=== PATIENT | female | born 2000 | race Caucasian/White ===

== ENCOUNTER 2021-03-01 22:28 | Emergency (ER) | payer OTHER, SELFPAY ==
--- NOTE | ~2021-03-01 | CT_ITS ---
EXAMINATION: CT cervical spine wo con DATE: 03/01/2021 23:36 INDICATION: Neck pain TECHNIQUE: Computed tomography (CT) of the cervical spine was performed without intravenous contrast. The dose-length product (DLP) was 639.84 mGy-cm. Automated exposure control and iterative reconstruc tion technique were employed. COMPARISON: None FINDINGS: There is reversal of the normal cervical lordosis. The odontoid is intact. Vertebral body a lignment is maintained. The intervertebral disc space heights are normal. There is no fracture. The p revertebral soft tissues are normal. IMPRESSION: 1. No cervical spine fracture. Reviewed, dictated and finalized at location A.
--- NOTE | ~2021-03-01 | XR_ITS ---
EXAMINATION: XR lumbar spine 2-3V DATE: 03/01/2021 23:42 INDICATION: Low back pain TECHNIQUE: Anteroposterior and lateral views of the lumbar spine, and cone-down lateral view of the l umbosacral junction were obtained. COMPARISON: 11/30/2013 FINDINGS: There is no fracture, dislocation, or subluxation. The vertebral body heights, alignment, a nd intervertebral disc spaces are normal. The bowel gas pattern is normal. IMPRESSION: 1. No acute osseous abnormality. Reviewed, dictated and finalized at location A.
[2021-03-01 22:30] VITALS: BP 148/99; PULSE 110; RESP 18; TEMP 36.8; O2SAT 100
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
[2021-03-02] MEDS: CYCLOBENZAPRINE HCL 10 MG TABLET PO (00:24)
== END 2021-03-02 00:26 | disposition home or self-care (01) ==
PROVIDERS: Emergency Provider Nurse Practitioner; PCP Pediatrics
DX: S13.4XXA Sprain of ligaments of cervical spine, initial encounter (principal); S39.012A Strain of muscle, fascia and tendon of lower back, initial encounter; V43.52XA Car driver injured in collision with other type car in traffic accident, initial encounter
CPT/HCPCS: 72100; 72125; 99284; A9270

== ENCOUNTER 2021-03-10 12:52 | Outpatient (RCR) | payer OTHER, SELFPAY ==
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
== END 2021-04-11 15:00 | disposition home or self-care (01) ==
LOC: CHSPT 12:52
PROVIDERS: PCP Pediatrics; Visit Provider Pediatrics
DX: S39.012A Strain of muscle, fascia and tendon of lower back, initial encounter (principal)
CPT/HCPCS: 97014; 97110; 97161; G0283

== ENCOUNTER → 2021-12-16 08:06 | Outpatient (CLI) | payer OTHER, SELFPAY ==
--- NOTE | ~2021-12-16 | US_ITS ---
EXAMINATION: US abdomen complete EXAM DATE: 12/16/2021 08:41 INDICATION: RUQ pain TECHNIQUE: Multiple grayscale and Doppler images of the complete abdomen were obtained (by a technolo gist who performed the scan) and subsequently reviewed. There is no prior study for comparison. FINDINGS: The abdominal aorta is normal in caliber. Visualized portion IVC is patent. The pancreatic head a nd body are normal in appearance. The pancreatic tail is not visualized. The liver has normal echogenicity and contour. There are no focal liver lesions identified. There is no evidence of intrahepatic biliary duct dilation. Portal venous flow was seen in the hepatopedal , normal direction and has normal Doppler waveform. Common bile duct measures 4 mm, which is normal. The gallbladder wall is normal in thickness, with ex pected amount of distention. No sonographic evidence of pericholecystic fluid. There is no cholelit hiases. Technologist performing exam reports patient did not demonstrate sonographic Barron's sign. Please note that this sign is less reliable in patients who have received pain medication. Right kidney: There is normal contour and echogenicity. It measures 11.4 x 5.0 x 5.5 centimeters. There are no focal renal lesions identified. There is no hydronephrosis. Left kidney: There is normal contour and echogenicity. It measures 12.0 x 5.3 x 5.3 centimeters. T here are no focal renal lesions identified. There is no hydronephrosis. The spleen measures 14.3 centimeters, mildly enlarged but otherwise morphologically normal. IMPRESSION: Mild splenomegaly. Reviewed, dictated and finalized at location B. ORER IMPRESSION: Mild splenomegaly.
--- NOTE | ~2021-12-16 | US_ITS ---
EXAMINATION: US pelvic complete DATE: 12/16/2021 10:07 INDICATION: Right upper quadrant pain Comparison:No prior studies for comparison. TECHNIQUE: Multiple transabdominal sonographic images of the pelvis performed. FINDINGS: The uterus measures 8.3 x 3.6 x 4.7 cm. The endometrial complex measures 5 mm. The right ovary measures 3.3 x 2.1 x 3.9 cm and the left ovary measures 2.5 x 1.7 x 2.4 cm. There ar e small follicles in each ovary. Normal doppler signal in both ovaries. There is no free fluid in the pelvis. There are no abnormal masses seen on either side. IMPRESSION: 1. Unremarkable pelvic ultrasound. Reviewed, dictated and finalized at location A. H HAND
== END ==
DX: R10.11 Right upper quadrant pain (principal); R16.1 Splenomegaly, not elsewhere classified
CPT/HCPCS: 76700; 76856

== ENCOUNTER 2024-05-29 08:05 | Outpatient (CLI) | payer OTHER, SELFPAY ==
--- NOTE | ~2024-05-29 | MR_ITS ---
EXAMINATION: MR cervical spine wo con DATE: 05/29/2024 08:41 INDICATION: Anesthesia of skin. Neck and shoulder and arm pain. TECHNIQUE: Magnetic resonance imaging (MRI) of the cervical spine was performed without intravenous c ontrast. COMPARISON: CT cervical spine 03/01/2021 FINDINGS: There is kyphosis of cervical spine. Vertebral body heights and intervertebral disc heights are normal. The spinal cord signal intensity is normal. The following disc levels are specifically d iscussed: C2-C3 through C6-C7: The disc does not extend beyond the endplate margin. There is no uncovertebral j oint osteoarthritis. There is no facet joint osteoarthritis. There is no neural foraminal stenosis. T here is no central canal stenosis. C7-T1: The disc does not extend beyond the endplate margin. There is no uncovertebral joint osteoarth ritis. There is mild bilateral facet joint osteoarthritis. There is no neural foraminal stenosis. The re is no central canal stenosis. IMPRESSION: 1. 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 Reviewed, dictated and finalized at location A.
== END 2024-05-29 08:06 | disposition home or self-care (01) ==
PROVIDERS: PCP Family Medicine; Visit Provider Physician Assistant Medical
DX: R20.0 Anesthesia of skin (principal); R20.2 Paresthesia of skin; M54.12 Radiculopathy, cervical region; R29.898 Other symptoms and signs involving the musculoskeletal system
CPT/HCPCS: 72141

== ENCOUNTER 2024-10-15 18:02 | Emergency (ER) | payer OTHER, SELFPAY ==
--- NOTE | ~2024-10-15 | CT_ITS ---
EXAMINATION: CT abdomen pelvis w con DATE: 10/15/2024 19:59 INDICATION: RUQ pain TECHNIQUE: Computed tomography (CT) of the abdomen and pelvis was performed with 100 mL Omnipaque-350 intravenous contrast. Automated exposure control and iterative reconstruction technique were employe d. The dose-length product was 1415.70 mGy-cm. COMPARISON: Ultrasounds of the abdomen and pelvis 12/16/2021. FINDINGS: Lower thorax: Unremarkable Liver: Enlarged. Biliary/Gallbladder: Gallbladder is normal. No bile duct dilation. Pancreas: No mass or duct dilation. Spleen: Enlarged. Adrenals:No mass. Kidneys: No suspicious mass, obstructing stone, or hydronephrosis. GI tract: No small or large bowel dilation. Normal appendix. Mesentery/Peritoneum: No ascites, mass, or free air. Retroperitoneum: No mass. Pelvis: Pelvic organs are within normal limits. IUD, in good position. Soft Tissues: Soft tissues and body wall unremarkable. Bones: No acute osseous finding. IMPRESSION: Hepatosplenomegaly. Otherwise normal CT abdomen and pelvis findings Reviewed, dictated and finalized at location K. 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
[2024-10-15 18:13] VITALS: BP 146/92; PULSE 114; RESP 18; TEMP 36.4; O2SAT 100
--- NOTE | 2024-10-15 18:16 | ED_ITS ---
HPI - Abdominal Pain General Chief Complaint: Abdominal Pain <EMERY Seth Last Filed: 10/15/24 18:20> Stated Complaint: RUQ pain <EMERY Seth Last Filed: 10/15/24 18:20> Time Seen by Provider: 10/15/24 18:14 <EMERY Seth Last Filed: 10/15/24 18:20> Focused HPI: Patient is a 24 y/o female who presents to the ED with c/o RUQ abd pain. Patient reports pain has been intermittent for the past few months, progressively worsening. Became worse and more constant today with radiation to her R shoulder blade. Has been nauseous today, unable to keep down any pain medication. Has been taking pepcid and prilosec for acid reflux sx's over past few months as well. Also reports having diarrhea today. Denies fevers. GENERAL: Uncomfortable-appearing, well-nourished, and in no acute distress. HEAD: Normocephalic, atraumatic. CHEST: Clear to auscultation. ?No respiratory distress. HEART: Tachycardic with regular rhythm.? ABD: Moderate tenderness in RUQ/epigastric region, no rebound. Normoactive BS NEURO: ?Alert and oriented x3. Patient screened in triage and initial orders placed.? ?Additional care and disposition to be based upon?diagnostic testing and treatment. <Chaya Cristobal PA-C - Last Filed: 10/15/24 18:20> Source: patient <EMERY Seth Last Filed: 10/15/24 18:20> Mode of arrival: ambulatory <EMERY Seth Last Filed: 10/15/24 18:20> Limitations: no limitations <EMERY Seth Last Filed: 10/15/24 18:20> History of Present Illness HPI narrative: Agree with HPI . Chronic discomfort for last month. Worsening over last week and associated with yellow diarrhea <Dc Tovar MD - Last Filed: 10/16/24 18:15> Related Data Allergies/Adverse Reactions: Allergies Allergy/AdvReac Type Severity Reaction Status Date / Time azithromycin (From Zithromax AdvReac Intermediate facial Verified 10/13/24 12:16 Z-Harish) flushing <Chaya Cristobal PA-C - Last Filed: 10/15/24 18:20> Review of Systems 2 Review of Systems: All systems reviewed & are unremarkable except as noted in HPI and below <Dc Tovar MD - Last Filed: 10/16/24 18:15> Constitutional: Constitutional: Reports no additional constitutional complaints <Dc Tovar MD - Last Filed: 10/16/24 18:15> ENT: Reports system reviewed and no additional complaints, except as documented <Dc Tovar MD - Last Filed: 10/16/24 18:15> Cardiovascular: Cardiovascular: Reports no additional cardiovascular complaints <Dc Tovar MD - Last Filed: 10/16/24 18:15> Respiratory: Respiratory: Reports no additional respiratory complaints < Dc Tovar MD - Last Filed: 10/16/24 18:15> Gastrointestinal: Gastrointestinal: Reports abdominal pain, Reports diarrhea and Reports nausea <Dc Tovar MD - Last Filed: 10/16/24 18:15> Genitourinary: Genitourinary: Reports no additional female genitourinary complaints <Dc Tovar MD - Last Filed: 10/16/24 18:15> PMFSH Past Medical History Medical History: Medical History No significant past medical history History of deviated nasal septum BMI greater than 40 <Chaya Cristobal PA-C - Last Filed: 10/15/24 18:20> Surgical History Surgical History: Surgical History No significant past surgical history History of oral surgery History of throat surgery History of tonsillectomy and adenoidectomy <Chaya Cristobal PA-C - Last Filed: 10/15/24 18:20> Family History Family History: Family History Other Acute myocardial infarction Breast cancer Depression Diabetes mellitus Heart disease Hypertension No significant family history <Chaya Cristobal PA-C - Last Filed: 10/15/24 18:20> Social History Social History: Social History Smoking status: Never smoker Alcohol intake: never Substance use: never Lack of Transportation: No Lack of Food: Never True Current Housing: I Have Housing Concerned About Future Housing: No Difficulty Paying Gas/Electric Bills: No Difficulty Paying for Meds: No Currently Unemployed: No Education: Bachelor's Degree Difficulty w/ Childcare or Family Care: No Living arrangements: with family Occupation/Education: student <Chaya Cristobal PA-C - Last Filed: 10/15/24 18:20> Exam 2 Narrative: GENERAL: Fatigued-appearing, well-nourished, and in no acute distress. HEAD: Normocephalic, atraumatic. ENT: Mucous membranes moist. CHEST: Clear to auscultation. No respiratory distress. HEART: tachycardic and regular. Normal peripheral pulses. ABDOMEN: Soft, mild epigastric discomfort, nondistended. EXTREMITIES: Normal range of motion. No edema. SKIN: Warm, dry, no rash. NEURO: Alert and oriented x3. PSYCH: Normal mood and affect. <Dc Tovar MD - Last Filed: 10/16/24 18:15> Course Course Emergency Course: CT with hepatosplenomegaly which is nonspecific. Informed patient of results. White count mildly elevated which likely relates to vomiting. Nonspecific LFT elevation is noncritical nodes likely related to viral syndrome. Recommend follow-up with PCP. <Dc Tovar MD - Last Filed: 10/16/24 18:15> Vital Signs Vital signs: Vital Signs Temperature 97.6 F 10/15/24 18:13 Pulse Rate 114 H 10/15/24 18:13 Respiratory Rate 18 10/15/24 18:13 Blood Pressure 146/92 H 10/15/24 18:13 Pulse Oximetry 100 10/15/24 18:13 Oxygen Delivery Room Air 10/15/24 18:13 Temperature 97.6 F 10/15/24 18:13 Pulse Rate 105 H 10/15/24 18:51 Respiratory Rate 18 10/15/24 18:51 Blood Pressure 130/92 H 10/15/24 18:51 Pulse Oximetry 98 10/15/24 18:51 Oxygen Delivery Room Air 10/15/24 18:13 <Chaya Cristobal PA-C - Last Filed: 10/15/24 18:20> Vital Signs Temperature 97.6 F 10/15/24 18:13 Pulse Rate 114 H 10/15/24 18:13 Respiratory Rate 18 10/15/24 18:13 Blood Pressure 146/92 H 10/15/24 18:13 Pulse Oximetry 100 10/15/24 18:13 Oxygen Delivery Room Air 10/15/24 18:13 Temperature 97.6 F 10/15/24 18:13 Pulse Rate 105 H 10/15/24 18:51 Respiratory Rate 18 10/15/24 18:51 Blood Pressure 130/92 H 10/15/24 18:51 Pulse Oximetry 98 10/15/24 18:51 Oxygen Delivery Room Air 10/15/24 18:13 <Dc Tovar MD - Last Filed: 10/16/24 18:15> MDM - Abdominal Pain MDM Narrative Medical decision making narrative: MSE by LUKAS in triage. <Chaya Cristobal PA-C - Last Filed: 10/15/24 18:20> Lab Data Result diagrams: 10/15/24 18:46 10/15/24 18:46 <EMERY Seth Last Filed: 10/15/24 18:20> Labs: Lab Results 10/15/24 10/15/24 10/15/24 Range/Units 18:46 19:38 19:41 WBC 14.1 H (4.5-10.0) K/mm3 RBC 5.36 (4.2-5.4) M/mm3 Hgb 15.7 H (12.0-15.0) g/dL Hct 46.3 (37.0-47.0) % MCV 86.4 (80-100) fl MCH 29.3 (26-34) pg MCHC 33.9 (32-36) g/dl RDW 12.3 (11.5-14.5) % Plt Count 280 (150-375) k/mm3 MPV 10.3 (7.4-10.4) fl Immature Gran % (Auto) Not Reportable Neut % (Auto) Not Reportable Lymph % (Auto) Not Reportable Island % (Auto) Not Reportable Eos % (Auto) Not Reportable Baso % (Auto) Not Reportable Lymph # (Auto) Not Reportable [place] # (Auto) Not Reportable Eos # (Auto) Not Reportable Baso # (Auto) Not Reportable Abs Immat Gran (auto) Not Reportable Absolute Neuts (auto) Not Reportable Absolute Nucleated RBC Not Reportable Total Counted 100 Neutrophils % (Manual) 79 H (46-73) % Band Neutrophils % 2 (0-6) % Lymphocytes % (Manual) 8.0 L (18-44) % Monocytes % (Manual) 10 H (3-9) % Eosinophils % (Manual) 1 (0-4) % Nucleated RBC % Not Reportable Abs Neuts (Manual) 11.42 H (1.7-7.2) K/mm3 Abs Lymphs (Manual) 1.12 (1.1-4.5) K/mm3 Abs Monocytes (Manual) 1.41 H (0.1-0.90) K/mm3 Absolute Eos (Manual) 0.14 (0.02-0.50) K/mm3 Platelet Estimate Adequate (Adequate) Schistocytes None seen Sodium 142 (137-145) mmol/L Potassium 3.7 (3.4-5.0) mmol/L Chloride 110 H (98-107) mmol/L Carbon Dioxide 26 (22-30) mmol/L Anion Gap 6 (4-12) mmol/L BUN 9 (7-17) mg/dL Creatinine 0.60 L (0.7-1.0) mg/dL Estim Creat Clear Calc 157 ml/min Estimated GFR > 60 (59 - ) Glucose 97 (65-110) mg/dL Calcium 9.6 (8.4-10.2) mg/dL Total Bilirubin 1.0 (0.2-1.3) mg/dL AST 43 H (14-36) U/L ALT 63 H (6-35) U/L Alkaline Phosphatase 81 (38-126) U/L Total Protein 8.0 (6.3-8.2) g/dL Albumin 4.8 (3.5-5.1) g/dL Lipase 99 (23-300) U/L Urine Color Yellow (Yellow) Urine Appearance Clear (Clear) Urine pH 6.0 (5.0-9.0) Ur Specific [place] 1.011 (1.001-1.035) Urine Protein Negative (Negative) mg/dL Urine Glucose (UA) Negative (Negative) mg/dL Urine Ketones Negative (Negative) mg/dL Ur Blood (Man) Negative (Negative) Urine Nitrate Negative (Negative) Urine Bilirubin Negative (Negative) Urine Urobilinogen 0.2 (<2.0) mg/dL Leukocyte Esterase Rfl Negative (Negative) ISIS/UL POC Urine HCG, Qual Negative (Negative) Monoscreen (Negative) 10/15/24 Range/Units 20:52 WBC (4.5-10.0) K/mm3 RBC (4.2-5.4) M/mm3 Hgb (12.0-15.0) g/dL Hct (37.0-47.0) % MCV (80-100) fl MCH (26-34) pg MCHC (32-36) g/dl RDW (11.5-14.5) % Plt Count (150-375) k/mm3 MPV (7.4-10.4) fl Immature Gran % (Auto) Neut % (Auto) Lymph % (Auto) Island % (Auto) Eos % (Auto) Baso % (Auto) Lymph # (Auto) [place] # (Auto) Eos # (Auto) Baso # (Auto) Abs Immat Gran (auto) Absolute Neuts (auto) Absolute Nucleated RBC Total Counted Neutrophils % (Manual) (46-73) % Band Neutrophils % (0-6) % Lymphocytes % (Manual) (18-44) % Monocytes % (Manual) (3-9) % Eosinophils % (Manual) (0-4) % Nucleated RBC % Abs Neuts (Manual) (1.7-7.2) K/mm3 Abs Lymphs (Manual) (1.1-4.5) K/mm3 Abs Monocytes (Manual) (0.1-0.90) K/mm3 Absolute Eos (Manual) (0.02-0.50) K/mm3 Platelet Estimate (Adequate) Schistocytes Sodium (137-145) mmol/L Potassium (3.4-5.0) mmol/L Chloride (98-107) mmol/L Carbon Dioxide (22-30) mmol/L Anion Gap (4-12) mmol/L BUN (7-17) mg/dL Creatinine (0.7-1.0) mg/dL Estim Creat Clear Calc ml/min Estimated GFR (59 - ) Glucose (65-110) mg/dL Calcium (8.4-10.2) mg/dL Total Bilirubin (0.2-1.3) mg/dL AST (14-36) U/L ALT (6-35) U/L Alkaline Phosphatase (38-126) U/L Total Protein (6.3-8.2) g/dL Albumin (3.5-5.1) g/dL Lipase (23-300) U/L Urine Color (Yellow) Urine Appearance (Clear) Urine pH (5.0-9.0) Ur Specific [place] (1.001-1.035) Urine Protein (Negative) mg/dL Urine Glucose (UA) (Negative) mg/dL Urine Ketones (Negative) mg/dL Ur Blood (Man) (Negative) Urine Nitrate (Negative) Urine Bilirubin (Negative) Urine Urobilinogen (<2.0) mg/dL Leukocyte Esterase Rfl (Negative) ISIS/UL POC Urine HCG, Qual (Negative) Monoscreen Negative (Negative) <Chaya Cristobal PA-C - Last Filed: 10/15/24 18:20> Lab Results 10/15/24 10/15/24 10/15/24 Range/Units 18:46 19:38 19:41 WBC 14.1 H (4.5-10.0) K/mm3 RBC 5.36 (4.2-5.4) M/mm3 Hgb 15.7 H (12.0-15.0) g/dL Hct 46.3 (37.0-47.0) % MCV 86.4 (80-100) fl MCH 29.3 (26-34) pg MCHC 33.9 (32-36) g/dl RDW 12.3 (11.5-14.5) % Plt Count 280 (150-375) k/mm3 MPV 10.3 (7.4-10.4) fl Immature Gran % (Auto) Not Reportable Neut % (Auto) Not Reportable Lymph % (Auto) Not Reportable Island % (Auto) Not Reportable Eos % (Auto) Not Reportable Baso % (Auto) Not Reportable Lymph # (Auto) Not Reportable [place] # (Auto) Not Reportable Eos # (Auto) Not Reportable Baso # (Auto) Not Reportable Abs Immat Gran (auto) Not Reportable Absolute Neuts (auto) Not Reportable Absolute Nucleated RBC Not Reportable Total Counted 100 Neutrophils % (Manual) 79 H (46-73) % Band Neutrophils % 2 (0-6) % Lymphocytes % (Manual) 8.0 L (18-44) % Monocytes % (Manual) 10 H (3-9) % Eosinophils % (Manual) 1 (0-4) % Nucleated RBC % Not Reportable Abs Neuts (Manual) 11.42 H (1.7-7.2) K/mm3 Abs Lymphs (Manual) 1.12 (1.1-4.5) K/mm3 Abs Monocytes (Manual) 1.41 H (0.1-0.90) K/mm3 Absolute Eos (Manual) 0.14 (0.02-0.50) K/mm3 Platelet Estimate Adequate (Adequate) Schistocytes None seen Sodium 142 (137-145) mmol/L Potassium 3.7 (3.4-5.0) mmol/L Chloride 110 H (98-107) mmol/L Carbon Dioxide 26 (22-30) mmol/L Anion Gap 6 (4-12) mmol/L BUN 9 (7-17) mg/dL Creatinine 0.60 L (0.7-1.0) mg/dL Estim Creat Clear Calc 157 ml/min Estimated GFR > 60 (59 - ) Glucose 97 (65-110) mg/dL Calcium 9.6 (8.4-10.2) mg/dL Total Bilirubin 1.0 (0.2-1.3) mg/dL AST 43 H (14-36) U/L ALT 63 H (6-35) U/L Alkaline Phosphatase 81 (38-126) U/L Total Protein 8.0 (6.3-8.2) g/dL Albumin 4.8 (3.5-5.1) g/dL Lipase 99 (23-300) U/L Urine Color Yellow (Yellow) Urine Appearance Clear (Clear) Urine pH 6.0 (5.0-9.0) Ur Specific [place] 1.011 (1.001-1.035) Urine Protein Negative (Negative) mg/dL Urine Glucose (UA) Negative (Negative) mg/dL Urine Ketones Negative (Negative) mg/dL Ur Blood (Man) Negative (Negative) Urine Nitrate Negative (Negative) Urine Bilirubin Negative (Negative) Urine Urobilinogen 0.2 (<2.0) mg/dL Leukocyte Esterase Rfl Negative (Negative) ISIS/UL POC Urine HCG, Qual Negative (Negative) Monoscreen (Negative) 10/15/24 Range/Units 20:52 WBC (4.5-10.0) K/mm3 RBC (4.2-5.4) M/mm3 Hgb (12.0-15.0) g/dL Hct (37.0-47.0) % MCV (80-100) fl MCH (26-34) pg MCHC (32-36) g/dl RDW (11.5-14.5) % Plt Count (150-375) k/mm3 MPV (7.4-10.4) fl Immature Gran % (Auto) Neut % (Auto) Lymph % (Auto) Island % (Auto) Eos % (Auto) Baso % (Auto) Lymph # (Auto) [place] # (Auto) Eos # (Auto) Baso # (Auto) Abs Immat Gran (auto) Absolute Neuts (auto) Absolute Nucleated RBC Total Counted Neutrophils % (Manual) (46-73) % Band Neutrophils % (0-6) % Lymphocytes % (Manual) (18-44) % Monocytes % (Manual) (3-9) % Eosinophils % (Manual) (0-4) % Nucleated RBC % Abs Neuts (Manual) (1.7-7.2) K/mm3 Abs Lymphs (Manual) (1.1-4.5) K/mm3 Abs Monocytes (Manual) (0.1-0.90) K/mm3 Absolute Eos (Manual) (0.02-0.50) K/mm3 Platelet Estimate (Adequate) Schistocytes Sodium (137-145) mmol/L Potassium (3.4-5.0) mmol/L Chloride (98-107) mmol/L Carbon Dioxide (22-30) mmol/L Anion Gap (4-12) mmol/L BUN (7-17) mg/dL Creatinine (0.7-1.0) mg/dL Estim Creat Clear Calc ml/min Estimated GFR (59 - ) Glucose (65-110) mg/dL Calcium (8.4-10.2) mg/dL Total Bilirubin (0.2-1.3) mg/dL AST (14-36) U/L ALT (6-35) U/L Alkaline Phosphatase (38-126) U/L Total Protein (6.3-8.2) g/dL Albumin (3.5-5.1) g/dL Lipase (23-300) U/L Urine Color (Yellow) Urine Appearance (Clear) Urine pH (5.0-9.0) Ur Specific [place] (1.001-1.035) Urine Protein (Negative) mg/dL Urine Glucose (UA) (Negative) mg/dL Urine Ketones (Negative) mg/dL Ur Blood (Man) (Negative) Urine Nitrate (Negative) Urine Bilirubin (Negative) Urine Urobilinogen (<2.0) mg/dL Leukocyte Esterase Rfl (Negative) ISIS/UL POC Urine HCG, Qual (Negative) Monoscreen Negative (Negative) <Dc Tovar MD - Last Filed: 10/16/24 18:15> Imaging Data Radiologist's impression: ITS Impressions Abdomen/Pelvis CT 10/15/24 20:07 IMPRESSION: Hepatosplenomegaly. Otherwise normal CT abdomen and pelvis findings <Chaya Cristobal PA-C - Last Filed: 10/15/24 18:20> ITS Impressions Abdomen/Pelvis CT 10/15/24 20:07 IMPRESSION: Hepatosplenomegaly. Otherwise normal CT abdomen and pelvis findings <Dc Tovar MD - Last Filed: 10/16/24 18:15> Discharge Plan Discharge Clinical Impression: Vomiting, Acute viral syndrome <Chaya Cristobal PA-C - Last Filed: 10/15/24 18:20> Patient Disposition: Home, Self-Care <Chaya Cristobal PA-C - Last Filed: 10/15/24 18:20> Condition: Stable <EMERY Seth Last Filed: 10/15/24 18:20> Instructions: Viral Syndrome (ED) <Chaya Cristobal PA-C - Last Filed: 10/15/24 18:20> Additional Instructions: and is likely you have a virus making you feel ill. You do have enlargement of your liver and spleen so avoid contact sports in follow-up with your primary care doctor for further evaluation. You may need referral to GI physician. <Chaya Cristobal PA-C - Last Filed: 10/15/24 18:20> Patient Language: Andorran <Chaya Cristobal PA-C - Last Filed: 10/15/24 18:20> Prescriptions: New ondansetron 4 mg tablet,disintegrating 4 mg PO Q6H PRN (Reason: nausea and vomiting) Qty: 10 0RF No Action cefuroxime axetil 500 mg tablet 500 mg PO BID Qty: 14 0RF escitalopram oxalate [Lexapro] 5 mg tablet 5 mg PO DAILY Qty: 30 2RF <Chaya Cristobal PA-C - Last Filed: 10/15/24 18:20> Follow-up/Referrals: Rony Mendes MD [Primary Care Provider] - 1 Week <Chaya Cristobal PA-C - Last Filed: 10/15/24 18:20>
[2024-10-15] MEDS: SODIUM CHLORIDE 0.9% IV 1,000 ML 999 ML IV CONT (18:47)
[2024-10-15] MEDS: MORPHINE SULFATE (*CRX) 4 MG/ML INJ IV PUSH (18:48)
[2024-10-15] MEDS: ONDANSETRON INJ 4 MG/2 ML VIAL IV PUSH ×2 (18:48→21:32)
[2024-10-15 18:51] VITALS: BP 130/92; PULSE 105; RESP 18; O2SAT 98
[2024-10-15 18:57] LABS: Hematocrit 46.3 % (37.0-47.0); Hemoglobin 15.7 g/dL (12.0-15.0); Mean Corpuscular HGB Conc 33.9 g/dl (32-36); Mean Corpuscular Hemoglobin 29.3 pg (26-34); Mean Corpuscular Volume 86.4 fl (80-100); Mean Platelet Volume 10.3 fl (7.4-10.4); Platelet Count Result 280 k/mm3 (150-375); Red Blood Count 5.36 M/mm3 (4.2-5.4); Red Cell Distribution Width 12.3 % (11.5-14.5); White Blood Count 14.1 K/mm3 (4.5-10.0)
[2024-10-15 19:16] LABS: Alanine Aminotransferase 63 U/L (6-35); Albumin Level 4.8 g/dL (3.5-5.1); Alkaline Phosphatase 81 U/L (38-126); Anion Gap 6 mmol/L (4-12); Aspartate Amino Transferase 43 U/L (14-36); Blood Urea Nitrogen 9 mg/dL (7-17); Calcium 9.6 mg/dL (8.4-10.2); Carbon Dioxide 26 mmol/L (22-30); Chloride 110 mmol/L (98-107); Estimated CRCL calculation 157 ml/min; Estimated Glomerular Filt Rate > 60; Glucose 97 mg/dL (65-110); Lipase 99 U/L (23-300); Potassium 3.7 mmol/L (3.4-5.0); Sodium 142 mmol/L (137-145)
[2024-10-15 19:30] LABS: Band Neutrophils Percent 2 % (0-6); Eosinophils Absolute Manual 0.14 K/mm3 (0.02-0.50); Eosinophils Percent Manual 1 % (0-4); Lymphocytes Absolute Manual 1.12 K/mm3 (1.1-4.5); Monocytes Absolute Manual 1.41 K/mm3 (0.1-0.90); Monocytes Percent Manual 10 % (3-9); Neutrophils Absolute Manual 11.42 K/mm3 (1.7-7.2); Neutrophils Percent Manual 79 % (46-73); Total Cells Counted 100
[2024-10-15 19:31] LABS: Platelet Estimate Adequate (Adequate); Schistocytes None Seen
[2024-10-15 19:44] LABS: BEDSIDEPREGUCG Negative (Negative)
[2024-10-15 19:48] LABS: Add Urine Microscopic? NO; Appearance Urine Clear (Clear); Bilirubin Urine Negative (Negative); Blood Urine Negative (Negative); Color Urine Yellow (Yellow); Glucose Urine UA Negative (Negative); Ketones Urine Negative (Negative); Leukocyte Esterase Ur Negative LEU/UL (Negative); Nitrate Urine Negative (Negative); Protein Urine Negative (Negative); Specific Grav Ur 1.011 (1.001-1.035); Urobilinogen Urine 0.2 mg/dL (<2.0)
[2024-10-15 22:07] LABS: Monoscreen Negative (Negative); Negative Monotest Control Negative (Negative); Positive Monotest Control Positive (Positive)
--- OUTSIDE RECORDS SUMMARY | 2024-10-22 15:48 | XMS_ITS | Data Portability ---
Author Organization [facility] Address [address] [place] [address] Care Team Providers Care Wood Molder Name Role Phone CAROLINE SAM Primary Care Provider [phone] Assessment Encounter Date Assessment Date Assessment LastModified by Organization Details LastModified Time 10/06/2022 10/06/2022 plan mirena IUD with cycle, handout given, reviewed risk of infection, bleeding, perforation, expulsion, will call with cycle. take ibuprofen prior to placement [email or web address] Not available 10/06/2022 10:25:48 Plan of Treatment Reminders Order Date Submit Date Provider Last Modified By Organization Details Last Modified Time Details Appointments None recorded. Lab CT + NG + TV, RNA, unspecified specimen [address] [facility] (Lab), [address], [place], [address], 3 15:10:59 test, urine 2022 023 [email or web address] 1 [facility] [address], [address], [place], [address], 3 14:34:24 Referral None recorded. Procedures None recorded. Surgeries None recorded. Imaging None recorded. Medication Orders Ortho Tri-Cyclen (28) 0.18 mg(7)/0.215 mg(7)/0.25 mg(7)-35 mcg tablet 2021 022 [email or web address] 1 [facility], [facility] [address] [place], [place], [id number], 3 14:26:17 Ortho Tri-Cyclen (28) 0.18 mg(7)/0.215 mg(7)/0.25 mg(7)-35 mcg tablet 2021 022 [email or web address] 1 [facility] [address] [facility], [place], [place], [id number], 3 14:26:17 Mirena 21 mcg/24 hr (up to 8 years) 52 mg intrauterin e device 2022 023 [email or web address] 1 Not available 14:38:48 Patient TargetsNo targets recorded. Patient InstructionsNo instructions recorded. Reason for Referral None Reported. Results Created Date Observation Date Name Description Value Unit Range Abnormal Flag Note LastModifiedBy Organization Detail LastModifiedTime 11/22/1911/22/2022 CT/GC AND TRICH OMONA S VAGIN SHADE (RRNA ), URINE chlamydia trachomatis, PCR Negati ve negati ve Not Available [facility] (Lab) [address], [place], [address], 11/23/2022 15:10:59 11/22/19 23 11/22/2022 CT/GC AND TRICH OMONA S VAGIN SHADE (RRNA ), URINE neisseria gonorrhoeae, PCR Negati ve negati ve Not Available [facility] (Lab) [address], [place], [address], 11/23/2022 15:10:59 11/22/19 23 11/22/2022 CT/GC AND TRICH OMONA S VAGIN SHADE (RRNA ), URINE trichomonas vaginalis ribosomal RNA (rrna) Negati ve negati ve Not Available [facility] (Lab) [address], [place], [address], 11/23/2022 15:10:59 11/22/19 23 11/22/2022 pregn jones test, urine HCG negati ve Not Available [place], [place], [address], 11/22/2022 14:33:57 02/10/20 23 02/09/2023 IMAGE GUIDE D PAP, REFLE X HPV IF ASCUS ONLY image guided Pap, reflex HPV ASCUS only SEE RESULT S BELOW CASE REPOR T: Cytol ogy Gynec ologi alia Repor t Case: [id number] Autho shena oly Provi cony: Ayse Valdez, PRESS OFFICER Colle cted: 02/09 1335 Order ing Locat ion: [place] Patho log[facility] Recei maryam: 02/10 0509 First Scree n: aSndy varma, Yovanny garcia, CT Speci men: Screjagruti jayme Pap - Image d, Cervi x STATE MENT OF ADEQU ACY: Satis facto ry for evalu ation Trans forma tion zone compo nent prese nt FINAL DIAGN OSIS: Negat margarita for Intra epith elial Karen hood or Hamida knight (NIL) . Elect jeannine garcia romulo d by Yovanny Hauser am, CT on 023 at 8:29 AM ----- ----- ----- ----- ----- ----- ----- ----- ----- ----- ----- ----- ----- ----- ----- ----- ----- ---- COMME NT: This speci men was revie wed by a Cytot echno logis t and/o r Patho logis t (as indic ated in this repor t) after evalu ation using the Thinp rep Imagi ng Syste m. CLINI ALIA INFOR MATIO N: Menst rual Statu s: LMP (if appli cable ): Clini alia Histo ry/Pr eviou s Pap: Type of Neopl anne (if appli cable ): Signi fican t Clini alia Findi ngs: Other Histo ry: Hormo charles (if appli cable ): PAP EDUCA MICHELLE L NOTE: The Pap Test is a scree jayme test with an inher ent false negat margarita rate. Liqui d-bas ed sampl ing may decre ase, but will not elimi brennan, false negat margarita resul ts. A negat margarita resul t does not precl ude the prese nce and/o r devel opmen t of disea se, since the prese nce of abnor mal cells in the sampl e depen ds on the locat ion of the lesio n and sampl ing techn ique. Jennyfer nued regul ar scree jayme is the best metho d of cance r preve ntion . If repor richard cytol ogic findi ng do not corre late with physi alia and/o r histo rical findi ngs, furth er inves tigat ion is recom jocelin d, as clini silke barth nted. Not Available [facility] (Lab) [address], [place], [address], 02/14/2023 09:31:31 Result Notes None recorded. Procedures Surgical History Date Name Laterality Status Provider Name and Address Organization Details Recorded Time 02/10/20 23 Date of Last Pap Smear completed Laverne Wheeler [facility] 02/09/2023 19:11:39 11/22/19 23 IUD Insertion completed Ayse Lomax CNM [address], [place], [address], [facility] 11/22/2022 14:40:19 06/23/20 22 Nexplanon Removal completed Laverne Wheeler [facility] 06/23/2022 11:21:24 10/15/19 20 extraction of wisdom tooth completed Laverne Wheeler [facility] 06/23/2022 11:20:17 10/15/19 19 procedure on nasal septum completed Laverne Wheeler [facility] 06/23/2022 11:20:45 10/15/19 13 Tonsillectomy completed Laverne Wheeler [facility] 06/23/2022 11:20:08 Imaging Results None recorded. Procedure Notes None recorded. Medical Equipment None Reported. Allergies No known drug allergies Medications Name Sig Start Date Stop Date Status Note LastModified by Organization Details LastModified Time Mirena 21 mcg/24 hr (up to 8 years) 52 mg intrauter ine device insert IUD 2022 active mirena IUD inserted 11/22/2022 and needs removed 11/22/2030 Not Available Not Available Not Available Tri-Sprin bill (28) 0.18 mg(7)/0.2 15 mg(7)/0.2 5 mg(7)-35 mcg tablet Take 1 tablet every day by oral route. 11/22 completed Not Available Not Available Not Available Nexplanon 68 mg subdermal implant insert 06/23 completed Prescribe d Elsewhere : No Locati on: [facility] Nikolas solis By: nani pacheco DateTime: 9 04:45:00 PM Not Available Not Available Not Available Vitals Date Recorded Body height Body weight Systolic blood pressure Diastolic blood pressure Provider Name and Address Organization Details Last Updated DateTime 06/23/2022 190.5 cm 289925.97 g 118 mm[Hg] 83 mm[Hg] Laverne Wheeler [facility] 06/23/2022 11:16:18 Date Recorded Body height Body mass index (BMI) Body weight Systolic blood pressure Diastolic blood pressure Provider Name and Address Organization Details Last Updated DateTime 10/06/2022 190.5 cm 39 kg/m2 954040.8 2 g 120 mm[Hg] 82 mm[Hg] Laverne Wheeler [facility] 2 10:14:21 Date Recorded Body height Body mass index (BMI) Body weight Systolic blood pressure Diastolic blood pressure Provider Name and Address Organization Details Last Updated DateTime 11/22/2022 190.5 cm 38.5 kg/m2 823619.4 5 g 130 mm[Hg] 82 mm[Hg] Laverne Wheeler [facility] 3 14:25:30 Date Recorded Body height Body mass index (BMI) Body weight Systolic blood pressure Diastolic blood pressure Provider Name and Address Organization Details Last Updated DateTime 02/09/2023 190.5 cm 39.9 kg/m2 821918.9 7 g 132 mm[Hg] 88 mm[Hg] Laverne Wheeler [facility] 11:12:20 Social History Question Answer Notes LastModified by Organizat ion Details LastModified Time Tobacco Smoking Status Never Smoker Laverne Wheeler null, [facility] 02/09/2023 11:12:45 Do You Have An Advance Directive? No [email or web address] Information n ot available 02/09/2023 What Is Your Level Of Alcohol Consumption? Occasional [email or web address] Information not available 06/23/2022 If You Are , What Was Your Level Of Alcohol Consumption Prior To ? None [email or web address] Information not available 02/09/2023 How Many Years Have You Consumed Alcohol? 1 [email or web address] Information not available 11/22/2022 Are You Blind Or Do You Have Difficulty Seeing? No [email or web address] Information n ot available 06/23/2022 What Is Your Level Of Caffeine Consumption? Occasional [email or web address] Information not available 02/09/2023 How Much Tobacco Do You Chew? None [email or web address] Information not available 11/22/2022 In The 14 Days Before Symptom Onset, Have You Had Close Contact With A Laboratory-confirm ed COVID-19 While That Case Was Ill? No Information n ot available 06/23/2022 In The 14 Days Before Symptom Onset, Have You Had Close Contact With A Person Who Is Under Investigation For COVID-19 While That Person Was Ill? No Information not available 06/23/2022 Have You Been To An Area Known To Be High Risk For COVID-19? No [email or web address] Information not available 06/23/2022 Are You Deaf Or Do You Have Serious Difficulty Hearing? No [email or web address] Information not available 06/23/2022 What Type Of Diet Are You Following? REGULAR [email or web address] Information n ot available 06/23/2022 What Is The Highest Grade Or Level Of School You Have Completed Or The Highest Degree You Have Received? 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 No Information not available 02/09/2023 Have You Ever Been Counseled For Unhealthy Alcohol Use? No [email or web address] Information not available 02/09/2023 Do You Use Protection During Sex? Usually [email or web address] Information not available 11/22/2022 Do You Use Your Seat Belt Or Car Seat Routinely? Yes [email or web address] Information not available 06/23/2022 Do You Have Smoke And Carbon Monoxide Detectors In Your Home? Yes [email or web address] Information not available 06/23/2022 How Much Tobacco Do You Smoke? No [email or web address] Information not available 11/22/2022 Do You Feel Stressed (tense, Restless, Nervous, Or Anxious, Or Unable To Sleep At Night)? [id number] [email or web address] Information not available 02/09/2023 Do You Use Any Illicit Or Recreational Drugs? No [email or web address] Information not available 06/23/2022 Do You Use Sunscreen Routinely? Yes [email or web address] Information not available 06/23/2022 Has Tobacco Cessation Counseling Been Provided? No [email or web address] Information not available 02/09/2023 How Many Years Have You Smoked Tobacco? 0 [email or web address] Information not available 02/09/2023 Have You Used IV Drugs? No [email or web address] Information not available 11/22/2022 Do You Or Have You Ever Used Any Other Forms Of Tobacco Or Nicotine? No [email or web address] Information not available 02/09/2023 Sex: Unknown Functional Status Question Answer Note LastModified by Organizat ion Details LastModified Time Do you have difficulty walking or climbing stairs? No [email or web address] Information not available 02/09/2023 Are you able to walk? YESWOREST [email or web address] Information not available 06/23/2022 Are you able to care for yourself? Yes [email or web address] Information not available 02/09/2023 Do you have difficulty dressing or bathing? No [email or web address] Information not available 02/09/2023 What is your exercise level? Occasional [email or web address] Information not available 06/23/2022 Mental Status None recorded. Family History Relationship Description Onset Age of this Age Resolved Age Notes LastModified by Organization Details LastModified Time Paternal Aunt Malignant tumor of breast [email or web address] Not available 02/09 11:12:44 Sister Cyst of ovary Not available 02/09 11:12:44 Sister Polycystic ovary syndrome [email or web address] Not available 02/09 11:12:44 Paternal Grandfather Heart disease [email or web address] Not available 02/09 11:12:44 Maternal Grandfather Asthma [email or web address] Not available 11:12:44 Maternal Grandmother Psychiatric symptom Not available 02/09 11:12:44 Father Hypertensive disorder [email or web address] Not available 02/09 11:12:44 Notes:Maternal grandfather: Asthma, Diabetes mellitus Maternal grandmother: psychiatric disease Paternal aunt: breast Paternal grandfather: Heart disease Sister: ovarian cyst Medical History Condition Response Allergies (Food, seasonal, environmental ) N Other N Breast Cancer N Drug/Latex Allergies/Reactions N Blood Transfusion N Dermatologic Disorders N Lung Disease N Defects or Inherited Disease N Breast Problem N Gestational Diabetes N Hematologic disorders N Anesthesia Complications N History of STI N Deep Vein Thrombosis N Polycystic ovary syndrome N Anxiety Disorder N Autoimmune disease N Arthritis N Infertility N Polyps N Acid Reflux (GERD) N History of abnormal pap N Cancer N Stroke N Varicosities N Neurologic/Epilepsy N Endometriosis N High Cholesterol N Headaches N Fibromyalgia N Kidney Disease N Heart Problems N Kidney or Bladder Problems N Thyroid Problems N GI Problems N Eating Disorder N Anemia N Art (IVF or FET) N Psychiatric Illness N Ovarian Cancer N Diabetes N Pulmonary (TB, Asthma) N Hepatitis/Liver Disease N No Past Medical History N Eczema N Urinary Tract Infection N Abuse/Domestic Violence N Asthma N Trauma/Violence N Depression/ depression N Heart Disease N Pre-Eclampsia N Hypertension N Osteoporosis N Thrombophilias N Gynecological History Statement/Question Response Abnormal Pap N Date of Last Mammogram Date of LMP 11/18/2022 On BCP's at Conception? N N Was last menstrual period normal Y STIs/STDs N HPV Vaccine N Current Control Method IUD Sexually Active? Y Date of DEXA bone scan Age of first menstrual cycle 12 Date of Last Pap Smear 02/09/2023 Sexual Problems? N Desired Control Method LMP Approximate N Obstetrics History GPAL:G 0 P 0 0 0 0 Type Value Living 0 Total 0 Past Encounters Encounter ID Performer Location Encounter Start Date Encounter Closed Date Diagnosis/Indication Diagnosis SNOMED-CT Code Diagnosis ICD10 Code Diagnosis Note [id number] Ayse Lomax CNM [place] [address] [address] 06/23/2022 10:38:16 06/23/2022 14:00:49 Contraception care management 614170162 Z30.9 will start ocpEffecti veness, correct use, advantages /disadvant ages, common side effects, serious complicati ons, contra-ind ications/p recautions and return to fertility were reviewed for the following: Combined oral contracept margarita (pills/pat ch/ring), Progestero ne-only pills, DepoProver a injection, Nexplanon implant,Sk yla IUD, Mirena IUD, Paragard IUD, Condoms, Diaphragm, Spermacide s, Permanent sterilizat ion (tubal ligation & Essure), Vasectomy for partner. Removal of subcutaneous contraceptive 596208965 Z30.46 f/u 3 month med check[facility] [id number] [facility] [address] [address] 10/06/2022 10:08:04 10/06/2022 10:34:32 Contraception care management 486114912 Z30.9 [id number] [facility] [address],[place] [address] 11/22/2022 14:09:45 11/22/2022 15:01:23 Screening procedure 97678808 Z13.9 Insertion of intrauterine contraceptive device 11995897 Z30.430 marcella well, f/u one month IUD check Venereal d isease screening 938119400 Z11.3 [id number] [facility] [address],[place] [address] 02/09/2023 10:36:38 02/09/2023 11:35:03 IUD check 518091983 Z30.431 marcella well f/u one year [facility] Concerns Section Related Observation LastModified by Organization Detai ls LastModified Time None Recorded Concern Status LastModified by Organization Details LastModified Time None Recorded Advance Directives Directive N: Payers Encounter Date Sequence Insurance Name Policy Number Policy Alexander Covered Member ID Alexander Member ID Guarantor Name 06/23/2022 1 [facility] [place] [id number] Zulema Scanzoni 10/06/2022 1 [facility] [place] [id number] Zulema Scanzoni 11/22/2022 1 [facility] [place] [id number] Zulema Scanzoni 02/09/2023 1 [facility] [place] [id number] Zulema Scanzoni Notes Date Note Type Note Provider Name and Address Organization Details Recorded Time 06/23/2022 text/html new pt would like nexplanon removed, last month, unsure about IUD's may want to try ocp's for awhile reviewed risk of blood clots and need for 3 month bp check Ayse Lomax CNM [address], [place], [address], [facility] 06/23/2022 11:31:06 10/06/2022 text/html med check control, was on nexplanon, did ocp 3, not reliable pill taker, wants IUD reviewed IUD options risk and benefits. offered pain management, declined Ayse Lomax CNM [address], [place], [address], [facility] 10/06/2022 10:25:51 11/22/2022 text/html Patient presents for IUD insertion. reviewed infection, bleeding, perforation, expulsion, UPT negative and on cycle, consent signed Ayse Lomax CNM [address], [place], [address], [facility] 11/22/2022 14:40:54 02/09/2023 text/html Patient presents for IUD check, needs pap will do today, no complaints Ayse Lomax, RAJANI [address], [place], [address], [facility] 02/09/2023 11:26:27 OBGyn Episode No OBEpisode recorded.
== END 2024-10-15 23:31 | disposition home or self-care (01) ==
PROVIDERS: Physician Assistant; Emergency Provider Emergency Medicine; PCP Family Medicine
DX: B34.9 Viral infection, unspecified (principal); R11.10 Vomiting, unspecified; R16.2 Hepatomegaly with splenomegaly, not elsewhere classified
CPT/HCPCS: 36415; 74177; 80053; 81003; 81025; 83690; 85025; 86308; 96361; 96374; 96375; 96376; 99284; J2270; J2405; J7030; Q9967

== ENCOUNTER 2024-10-21 09:07 | Outpatient (CLI) | payer OTHER, SELFPAY ==
--- NOTE | ~2024-10-21 | US_ITS ---
US right upper quadrant INDICATION: Right upper quadrant pain PROCEDURE: Realtime right upper abdominal ultrasound. COMPARISON: CT dated 10/15/2024 FINDINGS: The pancreas is normal without focal mass or pancreatic ductal dilation. Liver echotexture is diffusely increased, consistent with fatty infiltration. There is normal directional flow in the portal vein. The gallbladder is normal without stones, gallbladder wall thickening or pericholecystic fluid. Comm on bile duct measures 4 mm. No sonographic Barron's sign. IMPRESSION: 1: Fatty infiltration of the liver. Reviewed, dictated and finalized at location B. BACK HOST
== END 2024-10-21 09:08 | disposition home or self-care (01) ==
PROVIDERS: PCP Physician Assistant Medical; Visit Provider Surgery
DX: K76.0 Fatty (change of) liver, not elsewhere classified (principal)
CPT/HCPCS: 76705

== ENCOUNTER 2024-10-31 08:10 | Outpatient (CLI) | payer OTHER, SELFPAY ==
--- NOTE | ~2024-10-31 | NM_ITS ---
EXAMINATION: [place] hepatobiliary wo pharm DATE: 10/31/2024 10:35 INDICATION: Right upper quadrant abdominal pain. COMPARISON: CT abdomen pelvis 10/15/2024 TECHNIQUE: 5 mCi Tc-99m mebrofenin (Choletec) was administered intravenously. Scintigraphic images o f the abdomen were obtained for one hour. Then, the patient drank 8 oz Ensure, and imaging was contin ued for 60 minutes. FINDINGS: There is normal clearance of radiotracer from the blood pool. There is homogeneous tracer u ptake by the liver. Activity progresses to the bowel and gallbladder. Gallbladder ejection fraction (GBEF) was 98%. Note that with this technique, normal GBEF >= 33%. IMPRESSION: 1. Normal hepatobiliary scintigraphy. Reviewed, dictated and finalized at location A. 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
--- OUTSIDE RECORDS SUMMARY | 2024-11-06 05:20 | XMS_ITS | Data Portability ---
Author Organization [facility] Address [address] [place] [address] Care Team Providers Care Desk Reporter Name Role Phone CAROLINE SAM Primary Care Provider [phone] Assessment Encounter Date Assessment Date Assessment LastModified by Organization Details LastModified Time 10/06/2022 10/06/2022 plan mirena IUD with cycle, handout given, reviewed risk of infection, bleeding, perforation, expulsion, will call with cycle. take ibuprofen prior to placement [email or web address] Not available 10/06/2022 10:25:48 Plan of Treatment Reminders Order Date Submit Date Provider Last Modified By Organization Details Last Modified Time Details Appointments None recorded. Lab CT + NG + TV, RNA, unspecified specimen 2022 023 [facility] (Lab), [address] [facility], [place], [address], 3 15:10:59 test, urine 2022 023 [email or web address] [facility] [address], [place], [address], 3 14:34:24 Referral None recorded. Procedures None recorded. Surgeries None recorded. Imaging None recorded. Medication Orders Ortho Tri-Cyclen (28) 0.18 mg(7)/0.215 mg(7)/0.25 mg(7)-35 mcg tablet 2021 022 [email or web address] 1 [facility], [facility] [place], [place], [id number], 3 14:26:17 Ortho Tri-Cyclen (28) 0.18 mg(7)/0.215 mg(7)/0.25 mg(7)-35 mcg tablet 2021 022 [email or web address] 1 [facility] [address] [address] [facility], [place], [place], [id number], 3 14:26:17 Mirena 21 mcg/24 hr (up [...] PCR Negati ve negati ve Not Available [facility] (Lab) [address] [facility], [place], [address], 11/23/2022 15:10:59 11/22/19 23 11/22/2022 CT/GC AND TRICH OMONA S VAGIN SHADE (RRNA ), URINE neisseria gonorrhoeae, PCR Negati ve negati ve Not Available [facility] (Lab) [address] [facility], [place], [address], 11/23/2022 15:10:59 11/22/19 23 11/22/2022 CT/GC AND TRICH OMONA S VAGIN SHADE (RRNA ), URINE trichomonas vaginalis ribosomal RNA (rrna) Negati ve negati ve Not Available 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 Not Available [facility] (Lab) [address], [place], [address], 02/14/2023 09:31:31 Result Notes None recorded. Procedures Surgical History Date Name Laterality Status Provider Name and Address Organization Details Recorded Time 02/10/20 23 Date of Last Pap Smear completed Laverne Wheeler [facility] 02/09/2023 19:11:39 11/22/19 23 IUD Insertion completed Ayse Lomax CNM [address], [place], [address], [facility] 11/22/2022 14:40:19 06/23/20 22 Nexplanon Removal completed Laverne Wheeler [facility] 06/23/2022 11:21:24 10/15/19 20 extraction of wisdom tooth completed Laverne Wheeler [facility] 06/23/2022 11:20:17 10/15/19 19 procedure on nasal septum completed Laverne Wheeler [facility] 06/23/2022 11:20:45 10/15/19 13 Tonsillectomy completed Laverne Wheeler [facility] 06/23/2022 11:20:08 Imaging Results None recorded. [...] Prescribe d Elsewhere : No Locati on: [facility] Nikolas solis By: nani pacheco DateTime: 9 04:45:00 PM Not Available Not Available Not Available Vitals Date Recorded Body height Body weight Systolic blood pressure Diastolic blood pressure Provider Name and Address Organization Details Last Updated DateTime 06/23/2022 190.5 cm 432439.97 g 118 mm[Hg] 83 mm[Hg] Laverne Wheeler [facility] 06/23/2022 11:16:18 Date Recorded Body height Body mass index (BMI) Body weight Systolic blood pressure Diastolic blood pressure Provider Name and Address Organization Details Last Updated DateTime 10/06/2022 190.5 cm 39 kg/m2 291467.8 2 g 120 mm[Hg] 82 mm[Hg] Laverne Wheeler [facility] 2 10:14:21 Date Recorded Body height Body mass index (BMI) Body weight Systolic blood pressure Diastolic blood pressure Provider Name and Address Organization Details Last Updated DateTime 11/22/2022 190.5 cm 38.5 kg/m2 918435.4 5 g 130 mm[Hg] 82 mm[Hg] Laverne Wheeler [facility] 3 14:25:30 Date Recorded Body height Body mass index (BMI) Body weight Systolic blood pressure Diastolic blood pressure Provider Name and Address Organization Details Last Updated DateTime 02/09/2023 190.5 cm 39.9 kg/m2 433079.9 7 g 132 mm[Hg] 88 mm[Hg] Laverne Wheeler [facility] 11:12:20 Social History Question Answer Notes LastModified by Organizat ion Details LastModified Time Tobacco Smoking Status Never Smoker Laverne Wheeler null, [facility] 02/09/2023 11:12:45 Do You Have An Advance Directive? No [email or web address] Information n ot available 02/09/2023 What Is Your Level Of Alcohol Consumption? Occasional Information not available 06/23/2022 If You Are , What Was Your Level Of Alcohol Consumption Prior To ? None [email or web address] Information not available 02/09/2023 How Many Years Have You Consumed Alcohol? 1 [email or web address] Information not available 11/22/2022 Are You Blind Or Do You Have Difficulty Seeing? No [email or web address] Information n ot available 06/23/2022 What Is Your Level Of Caffeine Consumption? Occasional [email or web address] Information not available 02/09/2023 How Much Tobacco Do You Chew? None [email or web address] Information not available 11/22/2022 In The 14 Days Before Symptom Onset, Have You Had Close Contact With A Laboratory-confirm ed COVID-19 While That Case Was Ill? No [email or web address] Information n ot available 06/23/2022 In The 14 Days Before Symptom Onset, Have You Had Close Contact With A Person Who Is Under Investigation For COVID-19 While That Person Was Ill? No [email or web address] Information not available 06/23/2022 Have You Been To An Area Known To Be High Risk For COVID-19? No [email or web address] Information not available 06/23/2022 Are You Deaf Or Do You Have Serious Difficulty Hearing? No [email or web address] Information not available 06/23/2022 What Type Of Diet Are You Following? REGULAR Information n ot available 06/23/2022 What Is The Highest Grade Or Level Of School You Have Completed Or The Highest Degree You Have Received? 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 No [email or web address] Information not available 02/09/2023 Have You Ever Been Counseled For Unhealthy Alcohol Use? No [email or web address] Information not available 02/09/2023 Do You Use Protection During Sex? Usually [email or web address] Information not available 11/22/2022 Do You Use Your Seat Belt Or Car Seat Routinely? Yes [email or web address] Information not available 06/23/2022 Do You Have Smoke And Carbon Monoxide Detectors In Your Home? Yes [email or web address] Information not available 06/23/2022 How Much Tobacco Do You Smoke? No [email or web address] Information not available 11/22/2022 Do You Feel Stressed (tense, Restless, Nervous, Or Anxious, Or Unable To Sleep At Night)? [id number] Information not available 02/09/2023 Do You Use Any Illicit Or Recreational Drugs? No [email or web address] Information not available 06/23/2022 Do You Use Sunscreen Routinely? Yes [email or web address] Information not available 06/23/2022 Has Tobacco Cessation Counseling Been Provided? No [email or web address] Information not available 02/09/2023 How Many Years Have You Smoked Tobacco? 0 [email or web address] Information not available 02/09/2023 Have You Used IV Drugs? No [email or web address] Information not available 11/22/2022 Do You Or Have You Ever Used Any Other Forms Of Tobacco Or Nicotine? No [email or web address] Information not available 02/09/2023 Sex: Unknown Functional Status Question Answer Note LastModified by Organizat ion Details LastModified Time Do you have difficulty walking or climbing stairs? No [email or web address] Information not available 02/09/2023 Are you able to walk? YESWOREST [email or web address] Information not available 06/23/2022 Are you able to care for yourself? Yes [email or web address] Information not available 02/09/2023 Do you have difficulty dressing or bathing? No [email or web address] Information not available 02/09/2023 What is your exercise level? Occasional Information not available 06/23/2022 Mental Status None recorded. Family History Relationship Description Onset Age of this Age Resolved Age Notes LastModified by Organization Details LastModified Time Paternal Aunt Malignant tumor of breast [email or web address] Not available 02/09 11:12:44 Sister Cyst of ovary Not available 02/09 11:12:44 Sister Polycystic ovary syndrome [email or web address] Not available 02/09 11:12:44 Paternal Grandfather Heart disease [email or web address] Not available 02/09 11:12:44 Maternal Grandfather Asthma [email or web address] Not available 11:12:44 Maternal Grandmother Psychiatric symptom [email or web address] Not available 02/09 11:12:44 Father Hypertensive disorder [email or web address] Not available 02/09 11:12:44 Notes:Maternal grandfather: Asthma, Diabetes mellitus Maternal grandmother: psychiatric disease Paternal aunt: breast Paternal grandfather: Heart disease Sister: ovarian cyst Medical History Condition Response Allergies (Food, seasonal, environmental ) N Other N Drug/Latex Allergies/Reactions N Blood Transfusion N Breast Cancer N Dermatologic Disorders N Lung Disease N Defects or Inherited Disease N Breast Problem N Gestational Diabetes N Hematologic disorders N Anesthesia Complications N History of STI N Deep Vein Thrombosis N Polycystic ovary syndrome N Anxiety Disorder N Autoimmune disease N Arthritis N Polyps N Infertility N Acid Reflux (GERD) N History of abnormal pap N Cancer N Varicosities N Stroke N Neurologic/Epilepsy N Endometriosis N High Cholesterol N Fibromyalgia N Headaches N Kidney Disease N Heart Problems N Thyroid Problems N Kidney or Bladder Problems N GI Problems N Eating Disorder [...] SNOMED-CT Code Diagnosis ICD10 Code Diagnosis Note [id number] Ayse Lomax CNM [facility] [address],[place] [address] 06/23/2022 10:38:16 06/23/2022 14:00:49 Contraception care management 893009056 Z30.9 will start ocpEffecti veness, correct use, [...] Vasectomy for partner. Removal of subcutaneous contraceptive 963548430 Z30.46 f/u 3 month med check[facility] [id number] [address] [address] 10/06/2022 10:08:04 10/06/2022 10:34:32 Contraception care management 033082928 Z30.9 [id number] [facility] [address],[place] [address] 11/22/2022 14:09:45 11/22/2022 15:01:23 Screening procedure 90957298 Z13.9 Insertion of intrauterine contraceptive device 64615345 Z30.430 marcella well, f/u one month IUD check Venereal d isease screening 291796834 Z11.3 [id number] [facility] [address],[place] [address] 02/09/2023 10:36:38 02/09/2023 11:35:03 IUD check 003379979 Z30.431 marcella well f/u one year wwe Health Concerns Section Related Observation LastModified by Organization Detai ls LastModified Time None Recorded Concern Status LastModified by Organization Details LastModified Time None Recorded Advance Directives Directive N: Payers Encounter Date Sequence Insurance Name Policy Number Policy Alexander Covered Member ID Alexander Member ID Guarantor Name 06/23/2022 1 [facility] [place] [id number] Zulema Scanzoni 10/06/2022 1 [facility] [place] [id number] Zulema Scanzoni 11/22/2022 1 [facility] [place] [id number] Zulema Scanzoni 02/09/2023 1 [facility] [place] [id number] Zulema Scanzoni Notes Date Note Type Note Provider Name and Address Organization Details Recorded Time 06/23/2022 text/html new pt would like nexplanon removed, last month, unsure about IUD's may want to try ocp's for awhile reviewed risk of blood clots and need for 3 month bp check Ayse Lomax CNM [address], [place], [address], [facility] 06/23/2022 11:31:06 10/06/2022 text/html med check control, was on nexplanon, did ocp 3, not reliable pill taker, wants IUD reviewed IUD options risk and benefits. offered pain management, declined Ayse Lomax CNM [address], [place], [address], [facility] 10/06/2022 10:25:51 11/22/2022 text/html Patient presents for IUD insertion. reviewed infection, bleeding, perforation, expulsion, UPT negative and on cycle, consent signed Ayse Lomax CNM [address], [place], [address], [facility] 11/22/2022 14:40:54 02/09/2023 text/html Patient presents for IUD check, needs pap will do today, no complaints Ayse Lomax, RAJANI [address], [place], [address], [facility] 02/09/2023 11:26:27 OBGyn Episode No OBEpisode recorded.
== END 2024-10-31 08:11 | disposition home or self-care (01) ==
PROVIDERS: PCP Physician Assistant Medical; Visit Provider Surgery
DX: R10.11 Right upper quadrant pain (principal)
CPT/HCPCS: 78226; A9537

== ENCOUNTER 2024-11-20 07:45 | Outpatient (CLI) | payer OTHER, SELFPAY ==
[2024-11-20 08:30] LABS: Amylase 67 U/L (30-110)
== END 2024-11-20 07:46 | disposition home or self-care (01) ==
LOC: ANHLAB 07:46
PROVIDERS: PCP Physician Assistant Medical; Visit Provider Surgery
DX: K82.9 Disease of gallbladder, unspecified (principal)
CPT/HCPCS: 36415; 82150

== ENCOUNTER 2024-11-24 01:53 | Day surgery (SDC) | payer OTHER, SELFPAY ==
[2024-11-13 08:08] VITALS: BMI 34.4
--- NOTE | 2024-11-13 08:15 | PC.NURSE ---
Report to the Outpatient Waiting Room, entrance under the green pavilion located off [facility], at time _1100_ on date _[id number]_. Planned Procedure Time: _1pm_.? Time changes happen often and if your time is changed the preop area will call you the afternoon before. - You and your visitor will be asked to self-screen and do not enter if you have any COVID symptoms. Please call surgeon if you need to reschedule. - A mask is optional within the hospital at this time. Patients may have clear liquids (water, carbonated beverages, clear teas, apple juice) until 3 hours prior to surgery with a maximum of 20 ounces. - No food from midnight until time of surgery and no smoking. This includes no chewing gum, candy or mints. Take only the following medications with a SIP of water on the morning of surgery: ___Escitalopram DO NOT STOP ANY OF YOUR OTHER PRESCRIPTION MEDICATIONS PRIOR TO SURGERY EXCEPT THE FOLLOWING Medications to discontinue per physician ___None Please no make-up, nail rwandan, hairspray, perfume, deodorant, or body powder the day of surgery.? No jewelry (including any body piercings) or valuables the day of surgery, leave them at home.? Please take a shower or bath the night before, or the morning of, surgery with an antibacterial soap.? Wear comfortable, loose fitting clothing.? - Jewelry must be removed prior to entering the operating room.? Rings and piercings that are not removed may be cut off. - The hospital will not accept responsibility for valuables.? - Please leave all valuables, including medications, at home the day of surgery. If you are going home after surgery, a licensed driver recruiter must drive you home.? - NO public transportation without another adult if you receive anesthesia. - We recommend that an adult stay with you for 24 hours following discharge. - We also recommend that you do not drive, make important decision, drink alcoholic beverages, or take any drugs that were not prescribed by your health care provider for at least 24 hours after your discharge time. Hold all vitamins and supplements for 3 days per anesthesiologist. Follow any additional instructions given to you from your surgeon. Telephone instructions given to _Zulema__and asked if any additional questions and then verbalized understanding. Patient advised to call surgeon office or pre surgery nurse liaison [phone] if any additional questions.
[2024-11-24] VITALS (8 sets, daily range): BP systolic 112–153; BP diastolic 70–92; PULSE 60–102; RESP 11–20; TEMP 36.2–36.3; O2SAT 97–100
--- OUTSIDE RECORDS SUMMARY | 2024-11-24 01:57 | XMS_ITS | Data Portability ---
Author Organization [facility] Address [address] [place] [address] Care Team Providers Care Systems Analyst Developer Name Role Phone CAROLINE SAM Primary Care Provider [phone] Assessment Encounter Date Assessment Date Assessment LastModified by Organization Details LastModified Time 10/06/2022 10/06/2022 plan mirena IUD with cycle, handout given, reviewed risk of infection, bleeding, perforation, expulsion, will call with cycle. take ibuprofen prior to placement [email or web address] Not available 10/06/2022 10:25:48 Plan of Treatment Reminders Order Date Submit Date Provider Last Modified By Organization Details Last Modified Time Details Appointments None recorded. Lab CT + NG + TV, RNA, unspecified specimen 2022 023 [facility] (Lab), [address] [facility], [place], [address], 3 15:10:59 test, urine 2022 023 [email or web address] 1 [facility] [address], [place], [address], 3 14:34:24 Referral None recorded. Procedures None recorded. Surgeries None recorded. Imaging None recorded. Medication Orders Ortho Tri-Cyclen (28) 0.18 mg(7)/0.215 mg(7)/0.25 mg(7)-35 mcg tablet 2021 022 [email or web address] 1 [facility] [place], [id number], 3 14:26:17 Ortho Tri-Cyclen (28) 0.18 mg(7)/0.215 mg(7)/0.25 mg(7)-35 mcg tablet 2021 022 [email or web address] 1 [facility] [address] [facility], [place], [place], [id number], 3 14:26:17 Mirena 21 mcg/24 hr (up [...] PCR Negati ve negati ve Not Available [facility] (Lab) [address] [facility] [address] [facility], [place], [address], 11/23/2022 15:10:59 11/22/19 23 11/22/2022 CT/GC AND TRICH OMONA S VAGIN SHADE (RRNA ), URINE neisseria gonorrhoeae, PCR Negati ve negati ve Not Available [facility] (Lab) [address] [facility], [place], [address], 11/23/2022 15:10:59 11/22/19 23 11/22/2022 CT/GC AND TRICH OMONA S VAGIN SHADE (RRNA ), URINE trichomonas vaginalis ribosomal RNA (rrna) Negati ve negati ve Not Available [facility] (Lab) [address] [facility], [place], [address], 11/23/2022 15:10:59 11/22/19 23 11/22/2022 pregn jones test, urine HCG negati ve Not Available [facility], [place], [address], 11/22/2022 14:33:57 02/10/20 23 02/09/2023 IMAGE GUIDE D PAP, REFLE X HPV IF ASCUS ONLY image guided Pap, reflex HPV ASCUS only SEE RESULT S BELOW CASE REPOR T: Cytol ogy Gynec ologi alia Repor t Case: [id number] Autho shena oly Provi cony: Ayse Valdez, LEAK INSPECTOR Colle cted: 02/09 1335 Order ing Locat [...] as clini silke barth nted. Not Available [facility] (Lab) [address], [place], [address], 02/14/2023 09:31:31 Result Notes None recorded. Procedures Surgical History Date Name Laterality Status Provider Name and Address Organization Details Recorded Time 02/10/20 23 Date of Last Pap Smear completed Laverne Wheeler [facility] 02/09/2023 19:11:39 11/22/19 23 IUD Insertion completed Ayse Lomax CNM [address], [place], [address], [facility] 11/22/2022 14:40:19 06/23/20 22 Nexplanon Removal completed Laverne Wheeler [facility] 06/23/2022 11:21:24 10/15/19 20 extraction of wisdom tooth completed Laverne Wheeler [facility] 06/23/2022 11:20:17 10/15/19 19 procedure on nasal septum completed Laverne Wheeler [facility] 06/23/2022 11:20:45 10/15/19 13 Tonsillectomy completed Laverne Wheeler [facility] 06/23/2022 11:20:08 Imaging Results None [...] Prescribe d Elsewhere : No Locati on: [facility] Nikolas solis By: nani pacheco DateTime: 9 04:45:00 PM Not Available Not Available Not Available Vitals Date Recorded Body height Body weight Systolic blood pressure Diastolic blood pressure Provider Name and Address Organization Details Last Updated DateTime 06/23/2022 190.5 cm 101487.97 g 118 mm[Hg] 83 mm[Hg] Laverne Wheeler [facility] 06/23/2022 11:16:18 Date Recorded Body height Body mass index (BMI) Body weight Systolic blood pressure Diastolic blood pressure Provider Name and Address Organization Details Last Updated DateTime 10/06/2022 190.5 cm 39 kg/m2 846756.8 2 g 120 mm[Hg] 82 mm[Hg] Laverne Wheeler [facility] 2 10:14:21 Date Recorded Body height Body mass index (BMI) Body weight Systolic blood pressure Diastolic blood pressure Provider Name and Address Organization Details Last Updated DateTime 11/22/2022 190.5 cm 38.5 kg/m2 610458.4 5 g 130 mm[Hg] 82 mm[Hg] Laverne Wheeler [facility] 3 14:25:30 Date Recorded Body height Body mass index (BMI) Body weight Systolic blood pressure Diastolic blood pressure Provider Name and Address Organization Details Last Updated DateTime 02/09/2023 190.5 cm 39.9 kg/m2 259432.9 7 g 132 mm[Hg] 88 mm[Hg] Laverne Wheeler [facility] 11:12:20 Social History Question Answer Notes LastModified by Organizat ion Details LastModified Time Tobacco Smoking Status Never Smoker Laverne Wheeler null, [facility] 02/09/2023 11:12:45 Do You Have An Advance Directive? No Information n ot available 02/09/2023 What Is Your Level Of Alcohol Consumption? Occasional [email or web address] Information not available 06/23/2022 If You Are , What Was Your Level Of Alcohol Consumption Prior To ? None [email or web address] Information not available 02/09/2023 How Many Years Have You Consumed Alcohol? 1 [email or web address] Information not available 11/22/2022 Are You Blind Or Do You Have Difficulty Seeing? No [email or web address] Information n ot available 06/23/2022 What Is Your Level Of Caffeine Consumption? Occasional [email or web address] Information not available 02/09/2023 How Much Tobacco Do You Chew? None [email or web address] Information not available 11/22/2022 In The 14 Days Before Symptom Onset, Have You Had Close Contact With A Laboratory-confirm ed COVID-19 While That Case Was Ill? No [email or web address] Information n ot available 06/23/2022 In The 14 Days Before Symptom Onset, Have You Had Close Contact With A Person Who Is Under Investigation For COVID-19 While That Person Was Ill? No [email or web address] Information not available 06/23/2022 Have You Been To An Area Known To Be High Risk For COVID-19? No Information not available 06/23/2022 Are You Deaf Or Do You Have Serious Difficulty Hearing? No [email or web address] Information not available 06/23/2022 What Type Of Diet Are You Following? REGULAR [email or web address] Information n ot available 06/23/2022 What Is The Highest Grade Or Level Of School You Have Completed Or The Highest Degree You Have Received? 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 No [email or web address] Information not available 02/09/2023 Have You Ever Been Counseled For Unhealthy Alcohol Use? No [email or web address] Information not available 02/09/2023 Do You Use Protection During Sex? Usually [email or web address] Information not available 11/22/2022 Do You Use Your Seat Belt Or Car Seat Routinely? Yes [email or web address] Information not available 06/23/2022 Do You Have Smoke And Carbon Monoxide Detectors In Your Home? Yes [email or web address] Information not available 06/23/2022 How Much Tobacco Do You Smoke? No [email or web address] Information not available 11/22/2022 Do You Feel Stressed (tense, Restless, Nervous, Or Anxious, Or Unable To Sleep At Night)? [id number] [email or web address] Information not available 02/09/2023 Do You Use Any Illicit Or Recreational Drugs? No [email or web address] Information not available 06/23/2022 Do You Use Sunscreen Routinely? Yes [email or web address] Information not available 06/23/2022 Has Tobacco Cessation Counseling Been Provided? No [email or web address] Information not available 02/09/2023 How Many Years Have You Smoked Tobacco? 0 [email or web address] Information not available 02/09/2023 Have You Used IV Drugs? No [email or web address] Information not available 11/22/2022 Do You Or Have You Ever Used Any Other Forms Of Tobacco Or Nicotine? No [email or web address] Information not available 02/09/2023 Sex: Unknown Functional Status Question Answer Note LastModified by Organizat ion Details LastModified Time Do you have difficulty walking or climbing stairs? No Information not available 02/09/2023 Are you able to walk? YESWOREST [email or web address] Information not available 06/23/2022 Are you able to care for yourself? Yes [email or web address] Information not available 02/09/2023 Do you have difficulty dressing or bathing? No [email or web address] Information not available 02/09/2023 What is your exercise level? Occasional [email or web address] Information not available 06/23/2022 Mental Status None recorded. Family History Relationship Description Onset Age of this Age Resolved Age Notes LastModified by Organization Details LastModified Time Paternal Aunt Malignant tumor of breast Not available 02/09 11:12:44 Sister Cyst of ovary Not available 02/09 11:12:44 Sister Polycystic ovary syndrome [email or web address] Not available 02/09 11:12:44 Paternal Grandfather Heart disease Not available 02/09 11:12:44 Maternal Grandfather Asthma [email or web address] Not available 11:12:44 Maternal Grandmother Psychiatric symptom [email or web address] Not available 02/09 11:12:44 Father Hypertensive disorder [email or web address] Not available 02/09 11:12:44 Notes:Maternal grandfather: Asthma, Diabetes mellitus Maternal grandmother: psychiatric disease Paternal aunt: breast Paternal grandfather: Heart disease Sister: ovarian cyst Medical History Condition Response Allergies (Food, seasonal, environmental ) N Other N Breast Cancer N Blood Transfusion N Drug/Latex Allergies/Reactions N Dermatologic Disorders N Lung Disease N [...] SNOMED-CT Code Diagnosis ICD10 Code Diagnosis Note [id number] Ayse Lomax CNM [facility] [address] [address] 06/23/2022 10:38:16 06/23/2022 14:00:49 Contraception care management 607011311 Z30.9 will start ocpEffecti veness, correct use, [...] Vasectomy for partner. Removal of subcutaneous contraceptive 105662408 Z30.46 f/u 3 month med check[facility] [id number] [facility] [address] [address] 10/06/2022 10:08:04 10/06/2022 10:34:32 Contraception care management 143439748 Z30.9 [id number] [facility] [address],[place] [address] 11/22/2022 14:09:45 11/22/2022 15:01:23 Screening procedure 49462564 Z13.9 Insertion of intrauterine contraceptive device 61453153 Z30.430 marcella well, f/u one month IUD check Venereal d isease screening 338208384 Z11.3 [id number] [facility] [address],[place] [address] 02/09/2023 10:36:38 02/09/2023 11:35:03 IUD check 746106958 Z30.431 marcella well f/u one year wwe Health Concerns Section Related Observation LastModified by Organization Detai ls LastModified Time None Recorded Concern Status LastModified by Organization Details LastModified Time None Recorded Advance Directives Directive N: Payers Encounter Date Sequence Insurance Name Policy Number Policy Alexander Covered Member ID Alexander Member ID Guarantor Name 06/23/2022 1 [facility] [place] [id number] Zulema Scanzoni 10/06/2022 1 [facility] [place] [id number] Zulema Scanzoni 11/22/2022 1 [facility] [place] [id number] Zulema Scanzoni 02/09/2023 1 [facility] [place] [id number] Zulema Scanzoni Notes Date Note Type Note Provider Name and Address Organization Details Recorded Time 06/23/2022 text/html new pt would like nexplanon removed, last month, unsure about IUD's may want to try ocp's for awhile reviewed risk of blood clots and need for 3 month bp check Ayse Lomax CNM [address], [place], [address], [facility] 06/23/2022 11:31:06 10/06/2022 text/html med check control, was on nexplanon, did ocp 3, not reliable pill taker, wants IUD reviewed IUD options risk and benefits. offered pain management, declined Ayse Lomax CNM [address], [place], [address], [facility] 10/06/2022 10:25:51 11/22/2022 text/html Patient presents for IUD insertion. reviewed infection, bleeding, perforation, expulsion, UPT negative and on cycle, consent signed Ayse Lomax CNM [address], [place], [address], [facility] 11/22/2022 14:40:54 02/09/2023 text/html Patient presents for IUD check, needs pap will do today, no complaints Ayse Lomax, RAJANI [address], [place], [address], [facility] 02/09/2023 11:26:27 OBGyn Episode No OBEpisode recorded.
--- NOTE | 2024-11-24 12:08 | WPDHPUPDATE1 ---
History and Physical Update Update Date/Time: 11/24/24 12:08 History and Physical has been reviewed, including an updated exam of the patient. There are NO changes in the patient's condition. Risks, benefits, and alternatives have been discussed and questions answered. Patient agrees to proceed with procedure.
--- NOTE | 2024-11-24 12:09 | PM.IMHP ---
H&P: HPI History of Present Illness Date/Time: 11/24/24 12:09 Chief Complaint: RUQ pain Narrative: 24 yo woman presents for laparoscopic cholecystectomy. She reports no changes since last seen in office. Review of Systems Review of Systems: All systems reviewed & are unremarkable except as noted in HPI and below Constitutional: Constitutional: Denies chills, Denies fever(s), Denies headache(s) and Denies weight loss Eyes: Eyes: Denies change in vision ENT: Denies dizziness, Denies headache(s), Denies neck mass and Denies throat swelling Cardiovascular: Cardiovascular: Denies chest pain, Denies lightheadedness and Denies dyspnea Respiratory: Respiratory: Denies cough, Denies dyspnea and Denies wheezing Gastrointestinal: Gastrointestinal: Denies abdominal pain, Denies change in bowel habits, Denies nausea and Denies vomiting Genitourinary: Genitourinary: Denies hematuria and Denies dysuria Musculoskeletal: Musculoskeletal: Reports as per HPI Integumentary/Breasts: Skin/Breast: Reports as per HPI Neurologic: Denies dizziness and Denies headache(s) Allergic/Immunologic: Allergic/Immunologic: Denies throat swelling and Denies wheezing [facility] Past Medical History Medical History No significant past medical history History of deviated nasal septum BMI greater than 40 Surgical History Surgical History No significant past surgical history History of oral surgery History of throat surgery History of tonsillectomy and adenoidectomy Family History Family History Other Acute myocardial infarction Breast cancer Depression Diabetes mellitus Heart disease Hypertension No significant family history Social History Social History Smoking status: Never smoker Alcohol intake: current Substance use: never Lack of Transportation: No Lack of Food: Never True Current Housing: I Have Housing Concerned About Future Housing: No Difficulty Paying Gas/Electric Bills: No Difficulty Paying for Meds: No Currently Unemployed: No Education: Bachelor's Degree Difficulty w/ Childcare or Family Care: No Living arrangements: with family Occupation/Education: student Spiritual care concerns: No Meds Home Medications and Allergies Home Medications ?Medication ?Instructions ?Recorded ?Confirmed ?Type escitalopram oxalate 5 mg tablet 5 mg PO DAILY anxiety #30 tabs 10/06/24 11/13/24 Rx (Lexapro) Allergies Allergy/AdvReac Type Severity Reaction Status Date / Time azithromycin (From Zithromax AdvReac Intermediate facial Verified 11/13/24 08:07 Z-Harish) flushing Exam Const: General: no acute distress and alert Orientation/consciousness: patient oriented x3 HENMT: Head: normocephalic and atraumatic Ears: hearing grossly normal bilaterally Face/Nose/Sinus: Normal nares present Mouth: Yes Normal oral and palatal mucosa present Eyes: Periorbital: periorbital findings normal Sclera: sclerae normal EOM: EOMs intact bilaterally Neck: Neck: normal visual inspection, no lymphadenopathy and trachea midline Chest: Chest palpation & inspection: normal inspection of the chest Resp: Effort & Inspection: normal respiratory effort Auscultation: clear to auscultation bilaterally Cardio: Jugular venous distension: no JVD Rate: regular rate Rhythm: regular rhythm Heart sounds: S1 normal heart sound present and S2 normal heart sound present Peripheral pulses: Peripheral pulses 2+ throughout GI: Inspection: normal to inspection GI Palp: Yes Soft to palpation, No Tenderness to palpation present (GI), No Guarding due to palpation present (GI) and No Rebound tenderness present Percussion: Yes normal to percussion Auscultation: normal bowel sounds : General: Yes no CVA tenderness Back/Spine/Pelvis: Back: no CVA tenderness Neuro: General: patient oriented x3, no focal motor deficits and CN's II-XI intact bilaterally Cognition (Neuro): normal cognition Speech: normal speech Motor exam (neuro): 5/5 motor strength present throughout Extrem: General: capillary refill normal and no clubbing, cyanosis or edema Assessment and Plan Assessment and plan (1) RUQ pain: Code(s): R10.11 - Right upper quadrant pain Status: Acute Assessment and Plan: I have recommended laparoscopic cholecystectomy, possible open. I have discussed the procedure, risks, benefits, and alternatives with the patient. All questions answered. No changes since last seen in office.
[2024-11-24] MEDS: KETOROLAC 15 MG/ML VIAL (*BKC) IV PUSH (12:50)
[2024-11-24] MEDS: LACTATED RINGERS 1,000 ML 30 ML IV CONT ×2 (12:50→14:07)
[2024-11-24] MEDS: ACETAMINOPHEN 500 MG TABLET 1000 MG PO (12:50)
--- NOTE | 2024-11-24 13:02 | P.PNAN_ITS ---
Anes - Initial Pre Proc Eval Procedure: Operation Date: 11/24/24 13:00 Proposed Procedures p Laparoscopic Cholecystectomy, Possible Open - Skyler Coulter DO Date/Time: 11/24/24 13:02 Surgeon: Skyler Coulter DO Pre Op Diagnosis: gall bladder dysfunction Patient Data Age: 24 Gender: F Height: 1.91 m Weight: 125 kg Allergies Allergy/AdvReac Type Severity Reaction Status Date / Time azithromycin (From Zithromax AdvReac Intermediate facial Verified 11/13/24 08:07 Z-Harish) flushing Home Medications ?Medication ?Instructions ?Recorded ?Confirmed ?Type escitalopram oxalate 5 mg tablet 5 mg PO DAILY anxiety #30 tabs 10/06/24 11/13/24 Rx (Lexapro) Patient hx anesthesia problems: none Family hx anesthesia problems: none Results Review: All pre-operative results and documents have been reviewed as part of the pre- operative evaluation. PMFSH Past Medical History Medical History No significant past medical history History of deviated nasal septum BMI greater than 40 Surgical History Surgical History No significant past surgical history History of oral surgery History of throat surgery History of tonsillectomy and adenoidectomy Family History Family History Other Acute myocardial infarction Breast cancer Depression Diabetes mellitus Heart disease Hypertension No significant family history Social History Social History Smoking status: Never smoker Alcohol intake: current Substance use: never Lack of Transportation: No Lack of Food: Never True Current Housing: I Have Housing Concerned About Future Housing: No Difficulty Paying Gas/Electric Bills: No Difficulty Paying for Meds: No Currently Unemployed: No Education: Bachelor's Degree Difficulty w/ Childcare or Family Care: No Living arrangements: with family Occupation/Education: student Spiritual care concerns: No Anes - Eval Final PreProcedure Day of Procedure 11/24/24 13:02 Patient weight: obese Heart: regular rate and rhythm Lungs: normal air movement Airway: Mallampati scale Neurological: alert and oriented Last oral intake: >/= 8 hours ASA classification: II Emergent: no Anesthetic plan: proceed Anesthesia type and monitoring: general ETT and standard monitoring Results Review: All pre-operative results and documents have been reviewed as part of the pre- operative evaluation. BMi 34, overall good exercise tolerance, no cp or sob. Informed Consent: The patient's anesthetic plan and its attendant risks and benefits were discussed with the patient/family/POA. Questions were solicited and answers provided to the satisfaction of the patient/family/POA.
[2024-11-24] MEDS: ceFAZolin 3 GM/D5W 100 ML 100 ML IVPB (13:10)
[2024-11-24] MEDS: BUPIVACAINE/EPINEPHRINE 0.5% 50 ML VIAL 30 ML INFILTRATE (13:36)
--- NOTE | 2024-11-24 14:07 | P.OP_ITS ---
Procedure Note - Detailed Date of Procedure 11/24/24 Pre-op Diagnosis gall bladder dysfunction Post-op Diagnosis Same Procedure Performed Laparoscopic cholecystectomy Surgeon Skyler Coulter, DO Anesthesia General and Local (0.5% bupivacaine) Indications This is a 24-year-old woman who presented with right upper quadrant abdominal pains. She has been having intermittent pains for the past couple months. She has had a CT and ultrasound which only showed fatty infiltration of the liver but no gallbladder abnormalities. She then had a HIDA scan which showed a 98% ejection fraction. Discussions were made with the patient of the possibility that hyperfunctioning gallbladder could cause some of the symptoms. I discussed that it was not a guarantee but there was a fairly good chance that removing the gallbladder will help with her symptoms. Decision was made to proceed with laparoscopic cholecystectomy, possible open. Findings Laparoscopic cholecystectomy was performed. The patient's gallbladder did have a few pericholecystic adhesions at the distal body and neck. No other significant abnormalities were noted with the gallbladder. The cystic duct appeared normal in size. The gallbladder was removed and sent to the lab for pathology. Description of Procedure Procedure as well as risks, benefits, and alternatives were discussed with patient. Written consent was obtained and placed in chart prior to procedure. The patient was brought back to surgical suite. Patient was placed in supine position on operating table. Time-out was done to confirm patient and procedure. Patient was then intubated by the anesthesia department. Abdomen was prepped and draped in sterile fashion using chlorhexidine prep. 0.5% bupivacaine with epinephrine was infiltrated at each site of incision. A 5 millimeter incision was made near the umbilicus, and a 5 millimeter Optiview trocar was advanced through the abdominal layers under direct visualization. Once inside the abdominal cavity, carbon dioxide was insufflated to create a pneumoperitoneum. The camera was inserted and the abdomen was inspected. No immediate abnormalities were identified. The patient was placed in reverse Trendelenburg position and rotated slightly to the left. An 11 millimeter incision was made in the subxiphoid region, and an 11 millimeter trocar was inserted under direct visualization. Two 5 millimeter incisions were made in the right upper quadrant, and two 5 millimeter trocars were inserted under direct visualization. The gallbladder was identified and grasped at the fundus and retracted superiorly. It was then grasped at the infundibulum retracted laterally. Careful dissection around the neck of the gallbladder was performed using blunt dissection with a [place] grasper and hook electrocautery. The cystic duct was identified, and a window was created behind it. The cystic artery was also identified and a window was created behind it. The critical view of safety was identified, visualizing the cystic duct running directly into the neck of the gallbladder, and the cystic artery running directly into the wall of the gallbladder. A 5 millimeter clip cigar bander hand was then used to place 2 clips proximally and 1 clip distally on both the cystic duct and cystic artery. They were then both transected using endoscopic scissors. Once safely away from the jasmine hepatitis, the gallbladder was dissected free from the liver bed using hook electrocautery. Hemostasis was achieved along the way. The gallbladder was removed completely and then removed through the subxiphoid port. The liver bed was then inspected. Hemostasis appeared adequate, and our clips appeared secure. The area was gently irrigated with sterile saline. No other abnormalities were seen. The patient was flattened out in bed, and 1 final inspection was made around the abdominal cavity. The subxiphoid port was removed, and a Giuseppe Avril cone was used to approximate the fascia with an 0-Vicryl simple interrupted suture. The remaining ports were then removed under direct visualization, the camera was removed, and the pneumoperitoneum was released. The skin of the incisions was approximated using 4-0 Monocryl subcuticular sutures. Exofin glue was applied on top. The patient was then awakened from anesthesia, extubated, and transferred to recovery. Estimated Blood Loss 5 Pathology Yes (Gallbladder) Complications No immediate complications Condition Stable Disposition Same day [facility] Billing Surgery - Charge Forward: Surgery Billing
[2024-11-24] MEDS: fentaNYL CITRATE INJ (*CRX) 100 MCG/2 ML VIAL 25 MCG IV PUSH ×8 (14:21→14:50)
[2024-11-24] MEDS: ONDANSETRON INJ 4 MG/2 ML VIAL IV PUSH (14:22)
[2024-11-24] MEDS: diphenhydrAMINE HCl INJ 50 MG/ML VIAL 25 MG IV PUSH (15:20)
[2024-11-24] MEDS: oxyCODONE HCL (*CRX) 5 MG TAB IR PO (15:43)
== END 2024-11-24 16:05 | disposition home or self-care (01) ==
PROVIDERS: PCP Physician Assistant Medical; Visit Provider Surgery
PROC: 0FT44ZZ Resection of Gallbladder, Percutaneous Endoscopic Approach (ICD-10-PCS; CPT 47562; principal; 2024-11-24 13:00)
DX: K82.4 Cholesterolosis of gallbladder (principal); E66.9 Obesity, unspecified; Z68.35 Body mass index [BMI] 35.0-35.9, adult
CPT/HCPCS: 47562; 88304; A9270; J0690; J1100; J1200; J1885; J2003; J2250; J2405; J2704; J3010; J7030; J7120